=== PATIENT | female | born 1955 | race Caucasian/White ===

== ENCOUNTER 2018-06-15 09:56 | Outpatient (CLI) | payer BC ==
--- NOTE | 2018-06-15 13:24 | BD ---
DEXA BONE DENSITY STUDY: Date: 06/15/18 HISTORY: 62-year-old female with history of screening. FINDINGS: Lumbar Spine: BMD (g/cm2) L1 1.001 T-Score: +0.1 L2 1.109 T-Score: +0.7 L3 1.147 T-Score: +0.6 L4 1.116 T-Score: +0.5 L1-L4 1.094 T-Score: +0.4 Within normal limits with no increased risk for fracture. Bone mineral density has decreased approxim ately 0.1% from the prior 02/27/16 study. Left Hip: Femoral Neck: 0.603 T-Score: -2.2 Total Femur: 0.792 T-Score: -1.2 Evidence for osteopenia with increased risk for fracture. Bone mineral density has decreased 2% from the prior 02/27/16 study. FRAX Score: Major osteoporotic fracture 18%. Hip fracture 2.9%. POS: [facility]
== END 2018-06-15 09:57 | disposition home or self-care (01) ==
LOC: BICMAMMO 09:56
PROVIDERS: ATTEND Internal Medicine
DX: Z12.31 Encounter for screening mammogram for malignant neoplasm of breast (principal); Z13.820 Encounter for screening for osteoporosis; R92.1 Mammographic calcification found on diagnostic imaging of breast; M85.852 Other specified disorders of bone density and structure, left thigh; Z80.3 Family history of malignant neoplasm of breast
CPT/HCPCS: 77063; 77067; 77080

== ENCOUNTER 2022-10-04 12:25 | Outpatient (CLI) | payer MEDICARE, BC ==
[2022-10-04 14:01] LABS: #Eosinphils 0.1 10x3/uL (0.0-0.5); #Monocytes 0.4 10x3/uL (0.0-1.1); #Neutrophils 3.5 10x3/uL (1.5-8.4); %Basophils 0.4 % (0.0-2.0); %Eosinophils 1.7 % (0.0-6.0); %Lymphocytes 22.6 % (18.0-47.0); %Monocytes 7.8 % (0.0-10.0); %Neutrophils 67.1 % (40.0-75.0); Hemoglobin 14.9 g/dL (12.0-15.5); Mean Corpuscular HGB CONC 33.9 g/dL (32.0-36.0); Mean Corpuscular Hemoglobin 31.9 pg (27.0-33.0); Mean Platelet Volume 10.3 fl (7.4-10.4); Platelet Count 184 10x3/uL (150-450); RBC Distribution Width 13.4 % (11.5-14.5); Red Blood Cell (RBC) Count 4.67 10x6/uL (3.90-5.03); White Blood Cell (WBC) Count 5.3 10x3/uL (3.5-10.5)
[2022-10-04 14:26] LABS: Anion Gap 14 mmol/L (10-20); BUN (Urea Nitrogen) 19 mg/dL (9.8-20.1); Calc. Creatinine Clearance 0 mL/min (70-130); Calcium 9.6 mg/dL (7.8-10.44); Carbon Dioxide 27 mmol/L (23-31); Chloride 103 mmol/L (98-107); Estimated GFR 47; Glucose 116 mg/dL (80-115); Potassium 3.8 mmol/L (3.5-5.1); Sodium 140 mmol/L (136-145)
== END 2022-10-04 12:26 | disposition home or self-care (01) ==
LOC: LABBT 12:25
PROVIDERS: ATTEND Specialist
DX: Z01.818 Encounter for other preprocedural examination (principal); C50.911 Malignant neoplasm of unspecified site of right female breast
CPT/HCPCS: 80048; 85025; 93005; 93010

== ENCOUNTER 2022-10-08 07:11 | Day surgery (SDC) | payer MEDICARE, BC ==
[2022-10-04 14:58] VITALS: BMI 27.3
[2022-10-08] MEDS ORDERED: Ketorolac Tromethamine 30 MG/ML VIAL ONE (10:00)
[2022-10-08] MEDS ORDERED: Midazolam HCl 2 mg/2 ml Vial ONE (12:46)
[2022-10-08] MEDS ORDERED: Famotidine/PF 20 mg/2ml Vial ONE (12:46)
[2022-10-08] MEDS ORDERED: Scopolamine 1.5 mg/72 hour Patch ONE (12:46)
[2022-10-08] MEDS ORDERED: SUGAMMADEX SODIUM 200 MG/2 ML VIAL ONE (13:21)
[2022-10-08] MEDS ORDERED: Fentanyl 250 MCG/5 ML VIAL ONE (13:21)
[2022-10-08] MEDS ORDERED: Bupivacaine HCl 0.5%/Epinephrine 1:200,000/PF 30 ml Vial ONE (13:25)
[2022-10-08] MEDS ORDERED: Bupivacaine/Epinephrine 0.25% 30 ML VIAL ONE (13:25)
[2022-10-08] MEDS ORDERED: Lidocaine 2% PF 5 ML VIAL ONE (13:25)
[2022-10-08] MEDS ORDERED: Isosulfan Blue 50 MG/5 ML VIAL ONE (13:25)
[2022-10-08] MEDS ORDERED: Sodium Chloride 0.9% 100 ML ONE (13:38)
[2022-10-08] MEDS ORDERED: CEFAZOLIN 2 GM VIAL ONE (13:38)
[2022-10-08] MEDS ORDERED: ePHEDrine 50 MG/ML VIAL ONE (13:47)
[2022-10-08] MEDS ORDERED: Lidocaine 1% PF 5 ML VIAL ONE (13:47)
[2022-10-08] MEDS ORDERED: Dexamethasone 20 MG/5 ML VIAL ONE (13:47)
[2022-10-08] MEDS ORDERED: Succinylcholine Chloride 100 MG/5 ML SYRINGE FS ONE (13:47)
[2022-10-08] MEDS ORDERED: PROPOFOL 200 MG/20 ML VIAL ONE (13:47)
== END 2022-10-08 17:10 | disposition home or self-care (01) ==
LOC: SDC 07:11
PROVIDERS: ATTEND Specialist
PROC: 0HBT0ZZ Excision of Right Breast, Open Approach (ICD-10-PCS; principal; 2022-10-08)
PROC: 07B50ZX Excision of Right Axillary Lymphatic, Open Approach, Diagnostic (ICD-10-PCS; 2022-10-08)
DX: C50.411 Malignant neoplasm of upper-outer quadrant of right female breast (principal); I10 Essential (primary) hypertension; J30.1 Allergic rhinitis due to pollen; J30.81 Allergic rhinitis due to animal (cat) (dog) hair and dander; Z17.0 Estrogen receptor positive status [ER+]; Z79.2 Long term (current) use of antibiotics; Z79.899 Other long term (current) drug therapy; Z88.0 Allergy status to penicillin; Z88.2 Allergy status to sulfonamides; Z88.8 Allergy status to other drugs, medicaments and biological substances; Z91.011 Allergy to milk products; Z91.048 Other nonmedicinal substance allergy status
CPT/HCPCS: 19301; 38525; 38900; 76098; 78195; A9541; C1713; C1776; Q9968; 88307; 88341; 88342; J1100; J1885; J2001; J2250; J2704; J3010; J3490; S0028

== ENCOUNTER 2022-10-29 07:42 | Day surgery (SDC) | payer MEDICARE, BC ==
[2022-10-25 10:15] VITALS: BMI 26.0
[2022-10-29] MEDS ORDERED: Acetaminophen 500 MG TAB ONE (08:10)
[2022-10-29] MEDS ORDERED: Ketorolac Tromethamine 30 MG/ML VIAL ONE (08:10)
[2022-10-29] MEDS ORDERED: Acetaminophen 325 MG/10.15 ML UDCUP ONE (08:33)
[2022-10-29] MEDS ORDERED: Scopolamine 1.5 mg/72 hour Patch ONE (08:53)
[2022-10-29] MEDS ORDERED: Famotidine/PF 20 mg/2ml Vial ONE (08:53)
[2022-10-29] MEDS ORDERED: fentaNYL PF 100 MCG/2 ML SYRINGE ONE (09:18)
[2022-10-29] MEDS ORDERED: Bupivacaine/Epinephrine 0.25% 30 ML VIAL ONE (09:19)
[2022-10-29] MEDS ORDERED: CEFAZOLIN 2 GM VIAL ONE (09:26)
[2022-10-29] MEDS ORDERED: Sodium Chloride 0.9% 100 ML ONE (09:26)
[2022-10-29] MEDS ORDERED: Lidocaine 1% PF 5 ML VIAL ONE (09:35)
[2022-10-29] MEDS ORDERED: PROPOFOL 200 MG/20 ML VIAL ONE (09:35)
[2022-10-29] MEDS ORDERED: Dexamethasone 20 MG/5 ML VIAL ONE (09:35)
[2022-10-29] MEDS ORDERED: ePHEDrine 50 MG/ML VIAL ONE (09:35)
[2022-10-29] MEDS ORDERED: Ondansetron PF 4 MG/2 ML Vial ONE ×2 (09:35→11:45)
== END 2022-10-29 12:26 | disposition home or self-care (01) ==
LOC: SDC 07:42
PROVIDERS: ATTEND Specialist
PROC: 0HBT0ZZ Excision of Right Breast, Open Approach (ICD-10-PCS; principal; 2022-10-29)
DX: N60.31 Fibrosclerosis of right breast (principal); I10 Essential (primary) hypertension; Z79.2 Long term (current) use of antibiotics; Z79.899 Other long term (current) drug therapy; Z88.0 Allergy status to penicillin; Z88.2 Allergy status to sulfonamides; Z88.5 Allergy status to narcotic agent; Z88.6 Allergy status to analgesic agent; Z88.8 Allergy status to other drugs, medicaments and biological substances; Z91.011 Allergy to milk products; Z91.09 Other allergy status, other than to drugs and biological substances
CPT/HCPCS: 19301; C1713; C1889; 88307; 88341; 88342; J1100; J1885; J2405; J2704; J3490; S0028

== ENCOUNTER 2025-07-28 14:38 | Outpatient (CLI) | payer MEDICARE | END 2025-07-28 14:39 | disposition home or self-care (01) | LOC: SCSULT 14:38 | PROVIDERS: ATTEND Internal Medicine Hematology & Oncology | DX: C50.811 Malignant neoplasm of overlapping sites of right female breast (principal) ==